=== PATIENT | male | born 1950 | race African-American/Black ===

== ENCOUNTER 2017-09-08 17:16 | Emergency (ER) | payer OTHER ==
[~2017-09-08] VITALS: Ht 172.7 cm; Wt 88.2 kg
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
[2017-09-08] MEDS ORDERED: CYCL5TAB PO (22:36)
[2017-09-08] MEDS ORDERED: PERC5TAB12 PO (22:36)
[2017-09-08 22:46] VITALS: BP 168/89
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
== END 2017-09-08 22:46 | disposition home or self-care (01) ==
LOC: M ED 17:16
DX: S23.3XXA Sprain of ligaments of thoracic spine, initial encounter (principal); S60.222A Contusion of left hand, initial encounter; V49.40XA Driver injured in collision with unspecified motor vehicles in traffic accident, initial encounter; Y92.410 Unspecified street and highway as the place of occurrence of the external cause; Y93.89 Activity, other specified; Y99.9 Unspecified external cause status